=== PATIENT | male | born 1960 | race Native Hawaiian/Other Pacific Islander ===

== ENCOUNTER 2021-04-26 16:02 | Emergency (ER) | payer BC ==
[~2021-04-26] VITALS: Ht 177.8 cm; Wt 87.1 kg
[2021-04-26 17:15] VITALS: BP 136/79; TEMP 98
== END 2021-04-26 17:15 | disposition home or self-care (01) ==
LOC: ED 16:02
PROC: 0HQDXZZ Repair Right Lower Arm Skin, External Approach (ICD-10-PCS; principal; 2021-04-26)
DX: S51.811A Laceration without foreign body of right forearm, initial encounter (principal); S80.812A Abrasion, left lower leg, initial encounter; W01.198A Fall on same level from slipping, tripping and stumbling with subsequent striking against other object, initial encounter; Y93.89 Activity, other specified; Y92.89 Other specified places as the place of occurrence of the external cause
CPT/HCPCS: 90471; 90715; 99283